=== PATIENT | male | born 1930 | race Caucasian/White ===

== ENCOUNTER 2018-07-21 12:01 | Emergency (ER) | payer OTHER, BC ==
[2018-07-21] MEDS ORDERED: DIPHTH,PERTUSS(ACELL),TET 0.5 ML DISP.SYRIN IM ONE (12:02)
--- NOTE | 2018-07-21 12:05 | PDOC ---
History of Present Illness - General Chief Complaint: Injury Stated Complaint: SKIN TEAR Time Seen by Provider: 07/21/18 12:02 History Source: Patient Exam Limitations: No Limitations - History of Present Illness Initial Comments: 07/21/18 12:13 Patient is an 88M with history of afib (on coumadin), AAA, HTN, BPH, OA, gout, sick sinus syndrome s/p pacemaker placement here today for a skin tear that happened one hour prior to presentation. Patient states that he was in his doctors office getting his INR checked when he scrapped his arm against a door handle. His booking clerk, Dr Almeida, instructed him to go to the ER. Denies fall , no head trauma. Last tetanus unknown. Past History - Past Medical History Allergies/Adverse Reactions: Allergies Allergy/AdvReac Type Severity Reaction Status Date / Time No Known Allergies Allergy Verified 07/21/18 12:03 Home Medications: Ambulatory Orders Allopurinol [Zyloprim -] 100 mg PO DAILY 07/10/13 Garlic [Garlic Oil] 1 each PO DAILY 07/10/13 Valsartan [Diovan] 160 mg PO DAILY 07/10/13 Warfarin Na [Coumadin -] 2 mg PO SUTH 07/10/13 Dutasteride [Avodart] 0.5 mg PO DAILY 11/20/13 Tamsulosin HCl [Flomax -] 0.4 mg PO DAILY 11/20/13 Warfarin Sodium [Coumadin] 1 mg PO MOTUWEFRSA 02/08/16 Atorvastatin Ca [Lipitor] 10 mg PO HS #30 tablet 02/12/16 Metoprolol Succinate [Toprol XL -] 50 mg PO DAILY #30 tab.sr.24h 02/12/16 Ranolazine [Ranexa -] 500 mg PO BID #60 tab 02/12/16 Alprazolam [Xanax] 0.25 mg PO Q12H PRN #60 tablet MDD 2 02/24/16 Cardiac Disorders: Yes (AFIB) CVA: No Dementia: No Diabetes: No 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) Disorders: Yes (DR NUÑEZ DID A RECTAL BIOPSY LAST YEAR) HTN: Yes Seizures: No Thyroid Disease: No - Surgical History Abdominal Surgery: No Appendectomy: No Cardiac Surgery: Yes (LEFT SIDED PACEMAKER X 8 YRS) Cholecystectomy: No Lung Surgery: No Neurologic Surgery: No Orthopedic Surgery: No - Immunization History Immunization Up to Date: Yes (FLU AND PNA 2011) - Suicide/Smoking/Psychosocial Hx Smoking Status: No Smoking History: Former smoker Have you smoked in the past 12 months: No Number of Cigarettes Smoked Daily: 0 If you are a former smoker, when did you quit?: 35 Hx Alcohol Use: No Drug/Substance Use Hx: No Substance Use Type: None Review of Systems - Review of Systems Comments:: 07/21/18 12:15 GENERAL/CONSTITUTIONAL: No fever or chills. No weakness. HEAD, EYES, EARS, NOSE AND THROAT: No change in vision. No ear pain or discharge. No sore throat. CARDIOVASCULAR: No chest pain or shortness of breath RESPIRATORY: No cough, wheezing, or hemoptysis. GASTROINTESTINAL: No nausea, vomiting, diarrhea or constipation. GENITOURINARY: No dysuria, frequency, or change in urination. MUSCULOSKELETAL: No joint or muscle swelling or pain. No neck or back pain. SKIN: No rash, +skin tear NEUROLOGIC: No headache, vertigo, loss of consciousness, or change in strength/ sensation. ENDOCRINE: No increased thirst. No abnormal weight change HEMATOLOGIC/LYMPHATIC: No anemia, or history of blood clots. +history of easy bleeding ALLERGIC/IMMUNOLOGIC: No hives or skin allergy. *Physical Exam - Physical Exam Comments: 07/21/18 12:15 GENERAL: Awake, alert, and fully oriented, in no acute distress R ARM: 5x3cm skin avulsion with flap, shallow HEAD: No signs of trauma, normocephalic, atraumatic EYES: PERRLA, EOMI, sclera anicteric, conjunctiva clear ENT: Auricles normal inspection, hearing grossly normal, nares patent, oropharynx clear without exudates. Moist mucosa NECK: Normal ROM, supple, no lymphadenopathy, JVD, or masses LUNGS: No distress, speaks full sentences, clear to auscultation bilaterally HEART: Regular rate and rhythm, normal S1 and S2, no murmurs, rubs or gallops, peripheral pulses normal and equal bilaterally. NEUROLOGICAL: Cranial nerves II through XII grossly intact. Normal speech, normal gait, no focal sensorimotor deficits SKIN: Warm, Dry, normal turgor, no rashes or lesions noted. Medical Decision Making - Medical Decision Making 07/21/18 12:16 Patient is 88M with history of afib (on coumadin), AAA, HTN, BPH, OA, gout, sick sinus syndromes/p pacemaker here today with skin tear. Washed, cleaned. Bacitracin applied, steristrips applied, flap used as dressing, covered with gauze. Discharged with return precautions. *DC/Admit/Observation/Transfer Diagnosis at time of Disposition: Skin tear of forearm without complication - Discharge Dispostion Disposition: HOME Condition at time of disposition: Good Decision to Admit order: No - Referrals Referrals: Vera Hernández MD [Primary Care Provider] - - Patient Instructions Printed Discharge Instructions: DI for Avulsion Laceration (Not Requiring Sutures) Additional Instructions: Please return to the ED if you have any new, worsening or concerning symptoms, especially uncontrolled bleeding from the site, fevers, chills, and spreading redness. Please follow up with your primary care provider in the next week. Please avoid submerging the wound underwater, but you may take showers normally. - Post Discharge Activity
[2018-07-21 12:13] VITALS: BP 106/74; PULSE 73; TEMP 98.4; BMI 32.8
--- NOTE | 2018-07-21 12:26 | PDOC ---
Attending Attestation - Resident Resident Name: HomeroYayo bruno - ED Attending Attestation I have performed the following: I have examined & evaluated the patient, The case was reviewed & discussed with the resident, I agree w/resident's findings & plan, Exceptions are as noted - HPI HPI: 07/21/18 12:26 Agree with Residents HPI - Physicial Exam PE: 07/21/18 12:26 Agree with residents PE - Medical Decision Making 07/21/18 12:27 88 years old on Coumadin skin tear after bumping on the doctor's office tetanus needs to be updated not amenable to suturing given thin skin Steri-Strips placed bacitracin placed very strict infection return instructions discussed Findings, need for follow-up and strict return instructions discussed with patient.
== END 2018-07-21 12:40 | disposition home or self-care (01) ==
LOC: FER 12:01
PROC: 3E0234Z Introduction of Serum, Toxoid and Vaccine into Muscle, Percutaneous Approach (ICD-10-PCS; principal; 2018-07-21)
DX: S40.819A Abrasion of unspecified upper arm, initial encounter (principal); W22.03XA Walked into furniture, initial encounter; Y93.89 Activity, other specified; Y92.531 Health care provider office as the place of occurrence of the external cause; I10 Essential (primary) hypertension; N40.0 Benign prostatic hyperplasia without lower urinary tract symptoms; M19.90 Unspecified osteoarthritis, unspecified site; Z87.891 Personal history of nicotine dependence; Z95.0 Presence of cardiac pacemaker; I48.91 Unspecified atrial fibrillation; Z79.01 Long term (current) use of anticoagulants
CPT/HCPCS: 90471; 90715; 99282-25

== ENCOUNTER 2018-07-31 12:42 | Emergency (ER) | payer OTHER, BC ==
--- NOTE | 2018-07-31 12:51 | PDOC ---
History of Present Illness - General Chief Complaint: Injury Stated Complaint: LEFT BACK, LEFT RIBCAGE PAIN S/P FALL Time Seen by Provider: 07/31/18 12:51 - History of Present Illness Initial Comments: 07/31/18 13:15 The patient is an 88 year old male with a history of afib (on coumadin), AAA, HTN, BPH, OA, gout, sick sinus syndrome s/p pacemaker placement who presents for evaluation of left sided rib pain. The patient states that he fell 1 week ago onto his left side. He notes that he has been experiencing intermittent left sided chest and rib pain worse with movement of his left arm prompting his presentation to the ED for further evaluation. He denies any head trauma or other injuries from the fall and otherwise denies fevers, chills, SOB, nausea, vomiting, abdominal pain, numbness, tingling, weakness, or changes with urination or bowel movements. Past History - Past Medical History Allergies/Adverse Reactions: Allergies Allergy/AdvReac Type Severity Reaction Status Date / Time No Known Allergies Allergy Verified 07/31/18 12:44 Home Medications: Ambulatory Orders Allopurinol [Zyloprim -] 100 mg PO DAILY 07/10/13 Garlic [Garlic Oil] 1 each PO DAILY 07/10/13 Valsartan [Diovan] 160 mg PO DAILY 07/10/13 Warfarin Na [Coumadin -] 2 mg PO SUTH 07/10/13 Dutasteride [Avodart] 0.5 mg PO DAILY 11/20/13 Tamsulosin HCl [Flomax -] 0.4 mg PO DAILY 11/20/13 Warfarin Sodium [Coumadin] 1 mg PO MOTUWEFRSA 02/08/16 Atorvastatin Ca [Lipitor] 10 mg PO HS #30 tablet 02/12/16 Metoprolol Succinate [Toprol XL -] 50 mg PO DAILY #30 tab.sr.24h 02/12/16 Ranolazine [Ranexa -] 500 mg PO BID #60 tab 02/12/16 Alprazolam [Xanax] 0.25 mg PO Q12H PRN #60 tablet MDD 2 02/24/16 Lidocaine 5% Patch [Lidoderm Patch -] 1 patch TP DAILY #7 patch 07/31/18 Cardiac Disorders: Yes (AFIB) CVA: No COPD: No Dementia: No Diabetes: No 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) Disorders: Yes (DR NUÑEZ DID A RECTAL BIOPSY LAST YEAR) HTN: Yes Seizures: No Thyroid Disease: No - Surgical History Abdominal Surgery: No Appendectomy: No Cardiac Surgery: Yes (LEFT SIDED PACEMAKER X 8 YRS) Cholecystectomy: No Lung Surgery: No Neurologic Surgery: No Orthopedic Surgery: No - Immunization History Immunization Up to Date: Yes (FLU AND PNA 2011) - Suicide/Smoking/Psychosocial Hx Smoking Status: No Smoking History: Former smoker Have you smoked in the past 12 months: No Number of Cigarettes Smoked Daily: 0 If you are a former smoker, when did you quit?: 35 Hx Alcohol Use: No Drug/Substance Use Hx: No Substance Use Type: None Review of Systems - Review of Systems Comments:: 07/31/18 13:23 Constitutional: No fevers, chills, fatigue, malaise HEENT: No Rhinorrhea, nasal congestion, visual changes Cardiovascular: Chest pain/Rib Pain. No syncope, palpitations, lightheadedness Respiratory: No Cough, SOB, Hemoptysis, Gastrointestinal: No Abdominal pain, Nausea, Vomiting, Constipation, Diarrhea, Melena Genitourinary: No Dysuria, Frequency, Urgency, Hesitancy, Hematuria, Flank pain Musculoskeletal: No Myalgia, arthralgia Skin: No rashes, itching, bruising, pallor Neurologic: No Headache, Dizziness, Numbness, Weakness, or Tingling Psychiatric: No Hallucinations. No SI or HI *Physical Exam - Physical Exam Comments: 07/31/18 13:23 General Appearance: Nourished. No Apparent Distress HEENT: No Pharyngeal Erythema, Tonsillar Exudate, Tonsillar Erythema Neck: No Cervical Lymphadenopathy Respiratory/Chest: Lungs Clear, Normal Breath Sounds. Reproducible tenderness to palpation along the left sided ribs. No Crackles, Rales, Rhonchi, Wheezing Cardiovascular: Regular Rhythm, Regular Rate. No Murmur, Gallops, Rubs Gastrointestinal/Abdominal: Normal Bowel Sounds, Soft. No Guarding, Rebound, Tenderness Musculoskeletal: No CVA Tenderness Extremity: Normal Capillary Refill Integumentary: Normal Color, Dry, Warm Neurologic: Fully Oriented, Alert, Normal Mood/Affect, Normal Response, ED Treatment Course - LABORATORY CBC & Chemistry Diagram: 07/31/18 13:45 07/31/18 13:45 Medical Decision Making - Medical Decision Making 07/31/18 13:24 The patient is an 88 year old male with a history of afib (on coumadin), AAA, HTN, BPH, OA, gout, sick sinus syndrome s/p pacemaker placement who presents for evaluation of left sided rib pain. Differential includes but is not limited to: Fracture, Contusion, Anemia. Given the patient's history and physical exam, we will obtain a cbc, cmp, coags, chest CT to evaluate further. We will continue to monitor and reassess while here in the ED. 07/31/18 15:55 CBC, cmp, coags are unremarkable. Chest CT does not demonstrate any acute fractures as read by our radiologist. We are comfortable discharging the patient home with primary care provider follow up. We discussed the results, plan, and return precautions with the patient who voiced understanding and is agreeable with the plan. *DC/Admit/Observation/Transfer Diagnosis at time of Disposition: Chest pain Qualifiers: Chest pain type: unspecified Qualified Code(s): R07.9 - Chest pain, unspecified - Discharge Dispostion Disposition: HOME Condition at time of disposition: Stable Decision to Admit order: No - Prescriptions Prescriptions: Lidocaine 5% Patch [Lidoderm Patch -] 1 patch TP DAILY #7 patch - Referrals Referrals: Vera Hernández MD [Primary Care Provider] - - Patient Instructions Printed Discharge Instructions: DI for Contusion Additional Instructions: Please return to the ER if you experience concerning or worsening symptoms including worsening difficulty breathing, weakness, or chest pain. Your lab results were normal here in the ER and your Ct scan did not show any fractures. We have sent a prescription to your pharmacy for lidoderm patch that you may use to help manage your pain at home. Please call to schedule a follow up appointment with your primary care provider within 2-3 days to discuss your ER visit and further management of your symptoms. - Post Discharge Activity
[2018-07-31 12:59] VITALS: BP 109/78; PULSE 66; TEMP 97.9; BMI 30.7
--- NOTE | 2018-07-31 13:47 | PDOC ---
Attending Attestation - Resident Resident Name: Jett Haqueel - ED Attending Attestation I have performed the following: I have examined & evaluated the patient, The case was reviewed & discussed with the resident, I agree w/resident's findings & plan - HPI HPI: 07/31/18 15:42 Tocci 88 year old male with a history of afib (on coumadin), AAA, HTN, BPH, OA, gout, sick sinus syndrome s/p pacemaker placement presenting with left sided chest pain s/p fall ~1 week ago. No LOC or head injury. +direct impact onto left side of chest/side against the ground. Intermittent pain on left chest, worse with movement such as moving to close and open the door.. No AP, SISM, dizziness, prodromal sx. No cough or sob. no AMS/confusion 07/31/18 15:43 - Physicial Exam PE: 07/31/18 15:42 NAD, well appearing, MMM, nl conjunctiva; neck supple, no C spine tenderness. lungs clear, irreg irregular, mild tenderness to left anterior chest wall, no crepitus or overlying ecchymosis. abdomen soft nontender. BRIZUELA x4, no focal neuro deficits. No peripheral edema. normal color for ethnicity, [facility]. - Medical Decision Making 07/31/18 15:40 Tocci 88 year old male with a history of afib (on coumadin), AAA, HTN, BPH, OA, gout, sick sinus syndrome s/p pacemaker placement presenting with left sided chest pain s/p fall ~1 week ago. No LOC or head injury. +direct impact onto left side of chest/side against the ground. Intermittent pain on left chest, worse with movement such as moving to close and open the door.. No AP, SIMS, dizziness, prodromal sx. No cough or sob. no AMS/confusion Vitals wnl. Labs and lytes, coags with therapeutic INR. Cr elevated chronically ~4.4-4.6, no derangements. Declines pain meds. CT chest neg for fx or PTX or effusion/hemothorax. Possible axillary effusion from bursa, old sternal fx healed from prior injury. Reassurance to patient. Topical lidoderm for chest wall contusion. Pain control with tylenol PRN. chest PT and supportive care. f/u PCP. fall prevention discussed. 07/31/18 15:42
[2018-07-31 13:57] LABS: BASO % 0.5 % (0-2.0); EOS % 4.8 % (0-4.5); HEMATOCRIT 40.4 % (35.4-49); LYMPH % 10.2 % (8-40); MCHC 32.2 g/dl (32.0-35.9); MEAN PLT VOLUME 9.9 fl (7.5-11.1); MONO % 8.8 % (3.8-10.2); NEUT % 75.7 % (42.8-82.8); PLATELET COUNT 131 K/MM3 (134-434); RBC 4.49 M/mm3 (4.00-5.60); RDW 15.6 % (11.9-15.9); WHITE BLOOD COUNT 7.4 K/mm3 (4.0-10.8)
[2018-07-31 14:03] LABS: ACTIVATED PTT 36.5 SECONDS (25.2-36.5)
[2018-07-31 14:05] LABS: ALBUMIN 3.3 g/dl (3.5-5.0); ALK PHOS 89 U/L (32-92); ANION GAP 11 MMOL/L (8-16); BILIRUBIN,TOTAL 0.8 mg/dl (0.2-1.0); BLOOD UREA NITROGEN 64 mg/dl (7-18); CALCIUM 8.7 mg/dl (8.4-10.2); CHLORIDE 109 mmol/L (98-107); CO2 19 mmol/L (22-28); CREATININE 4.6 mg/dl (0.6-1.3); GLUCOSE,RANDOM 107 mg/dl (74-106); POTASSIUM 5.6 mmol/L (3.5-5.1); SGOT/AST 17 U/L (10-42); SGPT/ALT 17 U/L (10-40); SODIUM 139 mmol/L (136-145); TOT PROT 6.4 g/dl (6.4-8.3)
[2018-07-31 14:07] LABS: INR 2.58 (0.82-1.09); PROTHROMBIN TIME (PATIENT) 28.4 SEC (10.2-13.0)
== END 2018-07-31 16:00 | disposition home or self-care (01) ==
LOC: FER 12:42
DX: R07.9 Chest pain, unspecified (principal); I48.91 Unspecified atrial fibrillation; I71.4 Abdominal aortic aneurysm, without rupture; I10 Essential (primary) hypertension; N40.0 Benign prostatic hyperplasia without lower urinary tract symptoms; I49.5 Sick sinus syndrome; Z95.0 Presence of cardiac pacemaker; Z87.891 Personal history of nicotine dependence; W18.39XA Other fall on same level, initial encounter; Y93.89 Activity, other specified; Y92.89 Other specified places as the place of occurrence of the external cause
CPT/HCPCS: 36415; 71250-TC; 80053; 85025; 85610; 85730; 99283-25

== ENCOUNTER 2018-11-15 12:50 | Emergency (ER) | payer OTHER, BC ==
--- NOTE | 2018-11-15 13:06 | PDOC ---
History of Present Illness - General Chief Complaint: Injury Stated Complaint: fell a couple of days ago,wound to right arm and h Time Seen by Provider: 11/15/18 13:05 History Source: Patient, Family ([id number] present at bedside) Exam Limitations: No Limitations - History of Present Illness Initial Comments: HPI: 88 y/o male presenting to [facility] complaining of bleeding from two skin tears on his right arm. Pt fell walking down stairs at private residence last Tuesday. Struck his right arm on the ground. Denies striking head or neck. Fall was witnessed by [id number], who is present at bedside today and corroborates the story. Able to ambulate after fall. Denies LOC, retrograde or anterograde amnesia, or nausea/vomiting. Denies headache, change in vision, or disequilibrium. Wounds have been slowly bleeding since the fall. [id number] has been cleaning and dressing the wounds with bacitracin and nonabsorbable dressing. Reports soaking through single dressing per day. Pt takes Coumadin. Last PT/INR check three weeks ago. Scheduled for tomorrow for repeat. Endorses good compliance with medication. Past History - Past Medical History Allergies/Adverse Reactions: Allergies Allergy/AdvReac Type Severity Reaction Status Date / Time No Known Allergies Allergy Verified 11/15/18 12:53 Home Medications: Ambulatory Orders Allopurinol [Zyloprim -] 100 mg PO DAILY 07/10/13 Garlic [Garlic Oil] 1 each PO DAILY 07/10/13 Valsartan [Diovan] 160 mg PO DAILY 07/10/13 Warfarin Na [Coumadin -] 2 mg PO SUTH 07/10/13 Dutasteride [Avodart] 0.5 mg PO DAILY 11/20/13 Tamsulosin HCl [Flomax -] 0.4 mg PO DAILY 11/20/13 Warfarin Sodium [Coumadin] 1 mg PO MOTUWEFRSA 02/08/16 Atorvastatin Ca [Lipitor] 10 mg PO HS #30 tablet 02/12/16 Metoprolol Succinate [Toprol XL -] 50 mg PO DAILY #30 tab.sr.24h 02/12/16 Ranolazine [Ranexa -] 500 mg PO BID #60 tab 02/12/16 Alprazolam [Xanax] 0.25 mg PO Q12H PRN #60 tablet MDD 2 02/24/16 Lidocaine 5% Patch [Lidoderm Patch -] 1 patch TP DAILY #7 patch 07/31/18 Cardiac Disorders: Yes (AFIB) CVA: No COPD: No Dementia: No Diabetes: No 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) Disorders: Yes (DR NUÑEZ DID A RECTAL BIOPSY LAST YEAR) HTN: Yes Seizures: No Thyroid Disease: No - Surgical History Abdominal Surgery: No Appendectomy: No Cardiac Surgery: Yes (LEFT SIDED PACEMAKER X 8 YRS) Cholecystectomy: No Lung Surgery: No Neurologic Surgery: No Orthopedic Surgery: No - Immunization History Immunization Up to Date: Yes (FLU AND PNA 2011) - Suicide/Smoking/Psychosocial Hx Smoking Status: No Smoking History: Former smoker Have you smoked in the past 12 months: No Number of Cigarettes Smoked Daily: 0 If you are a former smoker, when did you quit?: 35 Hx Alcohol Use: No Drug/Substance Use Hx: No Substance Use Type: None Review of Systems - Review of Systems Able to Perform ROS?: Yes Comments:: In addition to that documented in the HPI above, the additional ROS was obtained : Constitutional: Denies fevers or chills Eyes: Denies vision changes ENMT: Denies sore throat CV: Denies chest pain Resp: Denies SOB GI: Denies vomiting or diarrhea : Denies painful urination MSK: Denies recent trauma Skin: Per HPI Neuro: Denies new numbness or tingling or weakness Endocrine: Denies polyuria Heme: Denies bleeding or bruising *Physical Exam - Physical Exam Comments: Constitutional: Well-developed, well-nourished elderly male in no acute distress or obvious discomfort. Found sitting upright on edge of bed. Alert and oriented x4. Answered all questions appropriately and completely. Speech was non -labored, non-pressured. Head: Normocephalic. No obvious external signs of trauma. No periorbital ecchymosis or Battles sign. Eyes: PERRL. EOMI. Sclerae white. Conjunctiva moist and not injected. Ears: Hearing grossly intact. Nose: No nasal discharge. Throat: Oral cavity and pharynx normal. No inflammation, swelling, exudate, or lesions. Teeth and gingiva in good general condition. Neck: Supple, trachea is midline. Pt able to laterally rotate neck to left and right >45 degrees. No subjective C-spine tenderness or bony deformities. No step off. Cardiovascular: Regular rate and regular rhythm. No murmur, rubs, clicks, or gallops. Peripheral pulses: Radial pulses full. Respiratory: Breathing unlabored. Equal chest rise and fall. Clear to auscultation bilaterally. No stridor, no wheezing, no rhonchi. Neuro: Alert and oriented. Moving all four extremities spontaneously. Gait normal. Skin/MSK: Irregularly shaped superficial skin avulsion approx. 10cm to lateral elbow and approx. 6cm to wrist of right upper extremity. Elbow wound minimal oozing blood. No active bleeding to wrist. No pain to palpation and good active and passive ROM. in elbow or wrist. 2+ radial pulse. Psych: Affect: appropriate. Mood: normal. Medical Decision Making - Medical Decision Making *Reviewed vital signs, nursing notes, and prior visit documentation (if available). 88 y/o presenting with 4 days of bleeding from skin avulsions after mechanical fall. Anticoagulated on coumadin. Vitals unremarkable for hypotension or tachycardia. Low suspicion for anemia. PT/INR indicated therapeutic range. Applied surgicel gauze and pressure dressing to bleeding wound. Hemostasis achieved. Non bleeding wound appeared less likely to continue to bleed. Covered with dry, clean dressing. Pt to follow up with ob/gyn doctor at already scheduled appointment tomorrow. Answered all questions. Provided return precautions. Pt expressed verbal understanding and agreement with plan to discharge home with outpatient follow up. *DC/Admit/Observation/Transfer Diagnosis at time of Disposition: Skin tear of upper extremity, Warfarin anticoagulation - Discharge Dispostion Disposition: HOME Condition at time of disposition: Good Decision to Admit order: No - Referrals Referrals: Vera Hernández MD [Primary Care Provider] - - Patient Instructions Printed Discharge Instructions: How to Prevent Falls Additional Instructions: You were seen today for skin tears to your right arm after your fall on Tuesday. The continued bleeding is likely because of your Coumadin therapy. Keep the area bandaged with the pressure dressing. Your PT/INR level was theraputic today. I have attached a copy of your lab results to this packet. Follow up with your ob/gyn doctor tomorrow as previously scheduled. Have him check the wound to see if it continues bleeding. You should also follow up with your primary care doctor to make sure you are healing. Go to the nearest emergency department if your condition worsens or you feel like you need additional emergency evaluation. Print Language: MONGOLIAN - Post Discharge Activity
[2018-11-15 13:12] VITALS: BP 113/75; PULSE 68; TEMP 97.5
--- NOTE | 2018-11-15 13:28 | PDOC ---
Attending Attestation - Resident Resident Name: Santi Brown - ED Attending Attestation I have performed the following: I have examined & evaluated the patient, The case was reviewed & discussed with the resident, I agree w/resident's findings & plan, Exceptions are as noted - HPI HPI: 11/15/18 13:24 88 yo male on coumadin s/p fall sustained lacertion to right elbow. fall happened 3 days ago. states he missed a step . denies head trauma. has been ambulating since fall. here for persistant bleeding. on coumadin for afib. has appointment with twist maker tomorrow. no other complaints. no bony pain or injury. last tetanus was less than one year ago here. 11/15/18 14:17 - Physicial Exam PE: 11/15/18 14:19 awake alert head atraumatic, lungs clear bilaterally heart irreg, no mrg. skin right elbow with large skin tear, no active bleedign. no surrounding erythema or exudate. no signs of infection. elbow from nt, right hand dorsum with laceration to hand, scabbed. 11/15/18 14:24 - Medical Decision Making 11/15/18 14:25 pt with skin avulsion, delayed presenation. no sutures due to delay and thin skin flap. will apply bacitracin, nonstick dressing, given adam wrap for compression. has followup scheduled with pcp tomorrow. pt INR checked 2.8 .
[2018-11-15 13:55] LABS: INR 2.82 (0.82-1.09); PROTHROMBIN TIME (PATIENT) 30.9 SEC (10.2-13.0)
== END 2018-11-15 14:20 | disposition home or self-care (01) ==
LOC: SUPCPDRO 12:50 → FER 12:50
DX: S40.811A Abrasion of right upper arm, initial encounter (principal); W10.9XXA Fall (on) (from) unspecified stairs and steps, initial encounter; Y93.89 Activity, other specified; Y92.009 Unspecified place in unspecified non-institutional (private) residence as the place of occurrence of the external cause; I48.91 Unspecified atrial fibrillation; I10 Essential (primary) hypertension; Z87.891 Personal history of nicotine dependence
CPT/HCPCS: 36415; 85610; 99282-25